=== PATIENT | female | born 1930 | race Caucasian/White ===

== ENCOUNTER 2016-12-16 19:01 | Emergency (ER) | payer MEDICARE ==
[2016-12-16] MEDS ORDERED: Lidocaine 1% with EPINEPHrine 1:100,000 20 ML MDV INFILT ONE (19:38)
--- NOTE | 2016-12-16 20:01 | EDM.PDOC ---
ED HPI GENERAL MEDICAL PROBLEM - General Time Seen by Provider: 12/16/16 19:01 - History of Present Illness INITIAL COMMENTS - FREE TEXT/NARRATIVE: DICTATED BY LUCIAN AGUILERA PA-C - Related Data Allergies Allergy/AdvReac Type Severity Reaction Status Date / Time No Known Allergies Allergy Verified 12/16/16 19:37 ED ROS GENERAL - Review of Systems Review Of Systems: See Below (DICTATED BY LUCIAN AGUILERA PA-C) ED EXAM, SKIN/RASH Exam: See Below (DICTATED BY LUCIAN AGUILERA PA-C) ED SKIN PROCEDURES - Laceration/Wound Repair Left Forehead Lac/wound length in cm: 4.5 Appearance: subcutaneous, linear, clean Anesthetic Type: local Local anesthesia - Lidocaine (Xylocaine): 1% with epi Local anesthetic volume: other (10cc) Skin prep: chlorhexidine (hibiciens), saline Exploration/Debridement/Repair: wound explored, in a bloodless field, explored to base, no foreign material found, wound margins revised Closed with: sutures Suture size: 4-0 # of sutures: 7 Suture type: nylon, interrupted, simple Sterile dressing applied: nurse Tetanus status addressed: Yes Complications: No Course - Orders/Labs/Meds Orders: Active Orders 24 hr Category Date Time Status Head wo Cont [CT] Stat Exams 12/16/16 19:38 Taken Meds: Medications Discontinued Medications Generic Name Dose Route Start Last Admin Trade Name Daniel PRN Reason Stop Dose Admin Lidocaine/Epinephrine 20 ml 12/16/16 19:38 Xylocaine 1% With Epinephrine 1:100,000 INFILT 12/16/16 19:39 ONETIME ONE Departure - Departure Time of Disposition: 20:25 Disposition: Home, Self-Care 01 Condition: good Clinical Impression: Laceration of forehead without complication Qualifiers: Encounter type: initial encounter Qualified Code(s): S01.81XA - Laceration without foreign body of other part of head, initial encounter Fall Qualifiers: Encounter type: initial encounter Qualified Code(s): W19.XXXA - Unspecified fall, initial encounter Closed head injury without loss of consciousness Qualifiers: Encounter type: initial encounter Qualified Code(s): S09.90XA - Unspecified injury of head, initial encounter - Discharge Information Instructions: Head Injury, Adult, Laceration Care, Adult, Sutured Wound Care Referrals: Diegel,Carly L, DO [Primary Care Provider] - Forms: ED Department Discharge Additional Instructions: 1. Stay well hydrated and rest 2. May use Tylenol/Advil as needed for pain 3. May shower/bathe as usual 4. Keep bandage on for 24 hours 5. Make appointment to see Dr. Ivory in 10 days for follow up and possible suture removal 6. Call us for any concerns - Problem List Review Problem List Initiated/Reviewed/Updated: Yes
[2016-12-16] MEDS ORDERED: Diphtheria,Pertussis(Acell),Tetanus Vaccine 0.5 ML Syringe IM ONE (20:31)
[2016-12-17 06:45] VITALS: BP 150/56
--- NOTE | 2016-12-24 07:50 | ER ---
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 The patient states that the patient was walking and fell forward, striking her head on a rock. She sustained approximately 4.5 cm laceration to her right forehead area and does subsequently was brought to the emergency room. She was ambulatory at the scene and had no loss of consciousness. The patient denies any injury otherwise isolated to her head and currently is anticoagulated with Coumadin. PAST MEDICAL HISTORY: AFib. MEDICATIONS: Coumadin. ALLERGIES: NKDA. REVIEW OF SYSTEMS: HEENT: Please see history of present illness. Respiratory: No shortness breath. Cardiac: Denies any substernal chest pain. GI: No nausea, vomiting, or diarrhea. No melena, hematochezia, or hematemesis. Musculoskeletal: No myalgias or arthralgias. Neurological: No fainting, blackouts, or lightheadedness. She did not have loss of consciousness. PHYSICAL EXAMINATION: General: This is an 86-year-old female patient, who is in no acute distress. Vital Signs: Blood pressure is 150/58, pulse rate is 60, temperature is 36.4, respiratory rate is 16, and O2 saturations 95%. Skin: Warm, pink, and dry. HEENT: The patient has a gaping 4 cm laceration to the forehead region. There is no obvious trauma to the underlying structures of the head. Eyes, PERRLA. Extraocular movements are intact. Extraocular movements are intact. Ears, TMs are clear. Mouth, oral mucosa is moist. No other head or facial trauma noted. Chest: No chest wall trauma noted. Lungs: Clear to auscultation. Heart: Regular rate and rhythm. Abdomen: Soft, nontender. There is no hepatosplenomegaly or masses noted. Extremities: Without edema. Neurologic: Cranial nerves II through XII are intact. Her speech is fluent. Gait is within normal limits. IMAGING DATA: CT scan of the patient's brain was obtained. Please refer to Mayco Velasco's dictation regarding the findings of this study. EMERGENCY ROOM COURSE: Again, the patient's care was transferred to Mayco Velasco. Please refer to his dictation regarding disposition of this patient. ASSESSMENT: A 4 cm laceration to forehead. PLAN: Again, please refer to Mayco Velasco's documentation of this patient regarding care and disposition from the emergency room. MWK: 12/23/2016 18:37:00 MODL: 12/23/2016 22:49:12 /[id number]
== END 2016-12-16 20:38 | disposition home or self-care (01) ==
LOC: VM.ED 19:01
DX: S01.81XA Laceration without foreign body of other part of head, initial encounter (principal); W01.198A Fall on same level from slipping, tripping and stumbling with subsequent striking against other object, initial encounter; Z23 Encounter for immunization
CPT/HCPCS: 12013; 70450; 90471; 90715; 99284; 99284-GF